=== PATIENT | female | born 1995 | race African-American/Black ===

== ENCOUNTER 2020-12-06 08:10 | Emergency (ER) | payer OTHER ==
[~2020-12-06] VITALS: Ht 162.6 cm; Wt 72.7 kg
[2020-12-06 08:11] VITALS: BP 120/75
[2020-12-06] MEDS ORDERED: TRAZ-184 PO (08:17)
[2020-12-06] MEDS ORDERED: MIRT30 PO (08:17)
[2020-12-06] MEDS ORDERED: ONDA-104 PO (08:18)
[2020-12-06] MEDS ORDERED: BUSP7.5T7 PO (08:18)
[2020-12-06] MEDS ORDERED: IBUPROFEN 600 MG TABLET PO ONE (08:30)
[2020-12-06] MEDS ORDERED: ACETAMINOPHEN 500 MG TABLET PO ONE (08:30)
== END 2020-12-06 10:15 | disposition home or self-care (01) ==
LOC: EMS 08:14
DX: S62.307A Unspecified fracture of fifth metacarpal bone, left hand, initial encounter for closed fracture (principal); Y04.0XXA Assault by unarmed brawl or fight, initial encounter; Y93.89 Activity, other specified; Y92.89 Other specified places as the place of occurrence of the external cause; Y99.8 Other external cause status
CPT/HCPCS: 99284; 73090-TC; 73110-TC; 73130-TC; Z7502; Z7610

== ENCOUNTER 2020-12-08 18:06 | Emergency (ER) | payer OTHER ==
[~2020-12-08] VITALS: Ht 162.6 cm; Wt 68.2 kg
[~2020-12-08 18:06] MED LIST: BUSP7.5T7 PO; MIRT30 PO; ONDA-104 PO; TRAZ-184 PO
[2020-12-08] MEDS ORDERED: IBUPROFEN 600 MG TABLET PO ONE (19:00)
[2020-12-08 19:05] VITALS: BP 122/74
== END 2020-12-08 19:40 | disposition home or self-care (01) ==
LOC: EMS 18:20
DX: S62.327A Displaced fracture of shaft of fifth metacarpal bone, left hand, initial encounter for closed fracture (principal); F32.9 Major depressive disorder, single episode, unspecified; Z91.018 Allergy to other foods; Z88.6 Allergy status to analgesic agent; Y04.0XXA Assault by unarmed brawl or fight, initial encounter; Y93.89 Activity, other specified; Y92.89 Other specified places as the place of occurrence of the external cause; Y99.8 Other external cause status
CPT/HCPCS: 99283